=== PATIENT | male | born 1975 | race Caucasian/White ===

== ENCOUNTER 2021-11-14 19:45 | Emergency (ER) | payer OTHER ==
[2021-11-14 19:57] VITALS: RESP 16; TEMP 97.7
--- NOTE | 2021-11-14 20:10 | ED ---
Alcohol HPI - General Chief Complaint: Alcohol Stated Complaint: ETOH Time Seen by Provider: 11/14/21 19:57 Source: patient, RN notes reviewed Mode of arrival: EMS Limitations: no limitations - History of Present Illness Initial Comments: This is a pleasant 46-year-old male who is admittedly intoxicated. Patient was laying on the ground hard. Patient denies any injury or fall. Denies any complaints. States she does have chronic back pain. Patient admits alcohol abuse. Denying any substance abuse otherwise. No suicidality or homicidality. Patient was brought in by [employer]. Patient needs to be cleared for long term. Review of systems Limited by alcohol intoxication but patient is able to give me an adequate history. Mild slurred speech but alert and oriented. No headache, no fever or chills, no changes in vision or hearing, no sore throat or difficulty with speech, no neck pain, no chest pain or shortness of breath, no abdominal pain, no nausea or vomiting, no changes in urination or bowel movements, no numbness or tingling, no extremity pain, no skin rashes or lesions. Past medical, surgical, social, and family history reviewed. Complaint: alcohol intoxication - Related Data Home Medications Medication Instructions Recorded Confirmed No Known Home Medications 10/17/15 10/17/15 Allergies Allergy/AdvReac Type Severity Reaction Status Date / Time No Known Allergies Allergy Verified 10/17/15 20:57 Review of Systems ROS Statement: Those systems with pertinent positive or pertinent negative responses have been documented in the HPI. ROS Other: All systems not noted in ROS Statement are negative. Past Medical History Past Medical History: No Reported History History of Any Multi-Drug Resistant Organisms: None Reported Past Surgical History: No Surgical Hx Reported Past Psychological History: Anxiety, Depression Smoking Status: Current every day smoker Past Alcohol Use History: Rare Past Drug Use History: Marijuana General Exam - General Exam Comments Initial Comments: Condition does not appear to be in any distress. Patient is alert and oriented. Cranial nerves II through XII intact. No evidence of head trauma or other trauma. Appears to be adequately hydrated. Patient does appear to have somewhat disheveled hygiene. Limitations: no limitations General appearance: alert, in no apparent distress Head exam: Present: atraumatic, normocephalic, normal inspection Eye exam: Present: normal appearance, PERRL, EOMI. Absent: scleral icterus, conjunctival injection, periorbital swelling ENT exam: Present: normal exam, normal oropharynx, mucous membranes moist, normal external ear exam. Absent: mucous membranes dry Neck exam: Present: normal inspection, full ROM. Absent: tenderness, meni ngismus, lymphadenopathy Respiratory exam: Present: normal lung sounds bilaterally. Absent: respiratory distress, wheezes, rales, rhonchi, stridor, chest wall tenderness, accessory muscle use Cardiovascular Exam: Present: regular rate, normal rhythm, normal heart sounds. Absent: systolic murmur, diastolic murmur, rubs, gallop, clicks GI/Abdominal exam: Present: soft, normal bowel sounds. Absent: distended, tenderness, guarding, rebound, rigid Extremities exam: Present: normal inspection, full ROM, normal capillary refill. Absent: tenderness, pedal edema, joint swelling, calf tenderness Back exam: Present: normal inspection Neurological exam: Present: alert, oriented X3, CN II-XII intact Psychiatric exam: Present: normal affect, normal mood Skin exam: Present: warm, dry, intact, normal color. Absent: rash, cyanosis, diaphoretic, erythema, urticaria, vesicles, petechiae, pallor, mottled, abrasion Course Vital Signs 11/14/21 19:52 Temperature 97.7 F Pulse Rate 76 Respiratory 16 Rate Blood Pressure 127/108 O2 Sat by Pulse 91 L Oximetry Medical Decision Making - Medical Decision Making The case was discussed in detail with ED attending physician. Presentation, findings, treatment plan discussed in detail. Patient presents with alcohol intoxication, needs Correction clearance. Patient was told to return to the ER for any signs or symptoms worsen. Told to return immediately if any other problems arise. All questions answered. Treatment plan discussed. Patient in agreement Every effort has been made to ensure accuracy of this dictation. However, due to the limitations of electronic medical records and dictation devices, errors in charting still occur. Supervising Dr. Collins Disposition Clinical Impression: Alcohol intoxication Disposition: HOME SELF-CARE Condition: Good Instructions (If sedation given, give patient instructions): Alcohol Intoxication (ED) Additional Instructions: Patient released to police custody Is patient prescribed a controlled substance at d/c from ED?: No Referrals: None,Stated [Primary Care Provider] - 1-2 days Time of Disposition: 20:10
[2021-11-14] MEDS ORDERED: MORPHINE SULFATE 4 MG/ML SYRINGE IV STA (20:15)
[2021-11-14] MEDS ORDERED: SODIUM CHLORIDE 0.9% 1,000 ML IV STA ×2 (20:15→21:01)
[2021-11-14] MEDS ORDERED: ONDANSETRON 4 MG/2 ML VIAL IVP STA (20:15)
[2021-11-14] MEDS ORDERED: KETOROLAC 15 MG/ML 1 ML VIAL IVP STA (20:16)
[2021-11-14] MEDS ORDERED: THIAMINE 100 MG/ML 2 ML VIAL IVP SCH (20:45)
[2021-11-15 00:23] VITALS: BP 125/68; PULSE 88
== END 2021-11-15 00:22 | disposition home or self-care (01) ==
LOC: EC 19:45
DX: F10.129 Alcohol abuse with intoxication, unspecified (principal); F17.200 Nicotine dependence, unspecified, uncomplicated
CPT/HCPCS: 99283; 96374; J3411

== ENCOUNTER 2023-01-23 19:43 | Emergency (ER) | payer OTHER ==
[2023-01-23 19:58] VITALS: TEMP 97.5
[2023-01-23] MEDS ORDERED: NICOTINE 14MG/24HR PATCH TRANSDERM STA (20:35)
--- NOTE | 2023-01-23 20:37 | ED ---
Head Injury HPI - General Chief complaint: Fall Stated complaint: ETOH - FALL Time Seen by Provider: 01/23/23 19:56 Source: patient, EMS, RN notes reviewed Mode of arrival: EMS Limitations: altered mental status - History of Present Illness Initial comments: This is a 47-year-old male who presents to the emergency department for alcohol intoxication and a head injury. Patient reports drinking a large amount of alcohol this evening, and per EMS, he tripped and fell, hitting the left side of his head about 30 minutes before arrival. Patient is unsure if there was any loss of consciousness. Not taking any blood thinners. EMS also states that the patient was complaining of blurry vision during transport. He is currently exhibiting no signs of distress and asking to leave. MD Complaint: head injury - Related Data Home Medications Medication Instructions Recorded Confirmed No Known Home Medications 10/17/15 10/17/15 Allergies/Adverse reactions: Allergies Allergy/AdvReac Type Severity Reaction Status Date / Time No Known Allergies Allergy Verified 10/17/15 20:57 Review of Systems ROS Statement: Those systems with pertinent positive or pertinent negative responses have been documented in the HPI. ROS Other: All systems not noted in ROS Statement are negative. Past Medical History Past Medical History: No Reported History History of Any Multi-Drug Resistant Organisms: None Reported Past Surgical History: No Surgical Hx Reported Past Psychological History: Anxiety, Depression Smoking Status: Current every day smoker Past Alcohol Use History: Abuse, Heavy Past Drug Use History: Marijuana General Exam Limitations: altered mental status General appearance: alert, appears intoxicated Head exam: Present: other (Hematoma to the left side of the head with overlying 1cm laceration with minor active bleeding) Eye exam: Present: normal appearance, PERRL, EOMI. Absent: scleral icterus, conjunctival injection, periorbital swelling Respiratory exam: Present: normal lung sounds bilaterally. Absent: respiratory distress, wheezes, rales, rhonchi, stridor Cardiovascular Exam: Present: regular rate, normal rhythm, normal heart sounds. Absent: systolic murmur, diastolic murmur, rubs, gallop, clicks Neurological exam: Present: alert, oriented X3, CN II-XII intact Psychiatric exam: Present: normal affect, normal mood Skin exam: Present: warm, dry, normal color. Absent: rash Course Vital Signs 01/23/23 01/23/23 19:45 21:39 Temperature 97.5 F L Pulse Rate 61 88 Respiratory 20 18 Rate Blood Pressure 134/99 146/98 O2 Sat by Pulse 100 96 Oximetry Procedures - Laceration Laceration #1 Consent Obtained: verbal consent Indication: laceration Site: scalp Size (cm): 1 Description: linear Depth: simple, single layer Type of Sutures: other ([place]) Number of Sutures: 1 Medical Decision Making - Medical Decision Making This is a 47 year old male who presents to the emergency department for a head injury. Was pt. sent in by a medical professional or institution? @ -No Did you speak to anyone other than the patient for history? @ -EMS provided the information about the blurry vision. Did you review nursing and triage notes? @ -Yes, and I agree, it is accurate with regards to the patient's symptoms. Were old charts reviewed? @ -No Differential Diagnosis? @ -Differential Diagnosis Head Injury: Contusion, hematoma, intracranial hemorrhage, skull fracture, whiplash, concussion, this is not meant to be an all-inclusive list. EKG interpreted by me (3pts min.)? @ -Not obtained X-rays interpreted by me (1pt min.)? @ -Not obtained CT interpreted by me (1pt min.)? @ -Computed tomography scan of the brain and c-spine obtained. My interpretation identifies no evidence of an acute intracranial hemorrhage, skull fracture, or cervical spine fracture. U/S interpreted by me (1pt. min.)? @ -Not obtained What testing was considered but not performed? (CT, X-rays, U/S, labs)? Why? @ -None What meds were considered but not given? Why? @ -None Did you discuss the management of the patient with other professionals? @ -No Did you reconcile home meds? @ -No Was smoking cessation discussed for >3mins.? @ -I discussed smoking cessation for greater than 3 minutes. The risk of smoking were discussed with the patient including but not limited to risks of cancer, stroke, coronary artery disease and COPD. Also discussed with patient were multiple methods of quitting smoking. Lastly we discussed the financial cost of smoking. Was critical care preformed (if so, how long)? @ -No Were there social determinants of health that impacted care today? How? (Homelessness, low income, unemployed, alcoholism, drug addiction, transportation, low edu. Level, literacy, decrease access to med. care, [facility], rehab)? @ -Alcoholism, leading to recurrent visits for alcohol intoxication and leading to the fall that brought him to the emergency department today. Was there de-escalation of care discussed even if they declined? (Discuss DNR or withdrawal of care, Hospice)? @ -No What co-morbidities impacted this encounter? (DM, HTN, Smoking, COPD, CAD, Cancer, CVA, Hep., AIDS, mental health diagnosis, sleep apnea, morbid obesity)? @ -Smoking, alcoholism Was patient admitted / discharged? @ -Discharged. GCS is 15. However, given the likely loss of consciousness with alcohol intoxication, computed tomography scan of the brain/C-spine was obtained. Patient was agreeable to a computed tomography scan of the brain, however he refused any blood work. BAT was 0.245. Computed tomography scan of the brain and c-spine revealed no acute findings. Patient was drinking coffee and continued to remain in no signs of distress. A staple was placed in the laceration within the hematoma. Patient was discharged home into the care of his father. He is instructed to return in 10-14 days for staple removal. He is also educated on the need to reduce alcohol consumption. Undiagnosed new problem with uncertain prognosis? @ -None Drug Therapy requiring intensive monitoring for toxicity (Heparin, Nitro, Insulin, Cardizem)? @ -None Were any procedures done? @ -Laceration repair with jaylan Diagnosis/symptom? @ -Head injury, alcohol intoxication, fall, laceration Acute, or Chronic, or Acute on Chronic? @ -Acute Uncomplicated (without systemic symptoms) or Complicated (systemic symptoms)? @ -Uncomplicated Side effects of treatment? @ -None Exacerbation, Progression, or Severe Exacerbation] @ -Not applicable Poses a threat to life or bodily function? @ -No Return precautions reviewed in depth, the patient is instructed to return to the emergency department with any new, worsening, or concerning symptoms. Patient verbalized understanding. This case was discussed in detail with the attending ED physician, Dr. Kee. Presentation, findings, and treatment plan discussed in detail as well. - Radiology Data Radiology results: report reviewed, image reviewed Disposition Clinical Impression: Fall, Head injury, Scalp laceration, Alcohol intoxication, Nicotine dependence Disposition: HOME SELF-CARE Instructions (If sedation given, give patient instructions): Alcohol Intoxication (ED), Staple Care (ED) Additional Instructions: Return to the emergency department with any new, worsening, or concerning symptoms and in 10-14 days for removal of the jaylan. Reduce your alcohol consumption. Follow up with your primary care provider in 1-2 days. Is patient prescribed a controlled substance at d/c from ED?: No Referrals: None,Stated [Primary Care Provider] - 1-2 days
--- NOTE | 2023-01-23 21:11 | CT ---
EXAMINATION TYPE: CT brain cspine wo con DATE OF EXAM: 01/23/2023 COMPARISON: None HISTORY: ETOH, Fall and hit head on concrete about [address] DLP: 1267.3 mGycm. Automated Exposure Control for Dose Reduction was Utilized. TECHNIQUE: CT scan of the head and cervical spine are performed without contrast. FINDINGS: There is soft tissue swelling laterally, over the left temporal and parietal bone. There is no underlying skull fracture. No acute intracranial hemorrhage, mass effect, or midline shift identi fied. The ventricles and sulci are within normal limits in size. The globes are intact. The left ma xillary sinus and the left anterior ethmoid sinus air cells are completely opacified, consistent with chronic inflammatory change. Remainder of the paranasal sinuses are clear. The middle ear cavities a nd mastoid sinus air cells are clear. Cervical spine is visualized in its entirety from C1 through upper thoracic levels and demonstrates s atisfactory alignment without evidence of acute fracture or dislocation. Prevertebral soft tissue ap pears within normal limits. The C1-C2 articulation is unremarkable. IMPRESSION: 1. There is no acute fracture or dislocation evident in the cervical spine. 2. No acute intracranial hemorrhage, mass effect, or midline shift is seen.
[2023-01-23 21:53] VITALS: BP 146/98; PULSE 88; RESP 18
== END 2023-01-23 21:40 | disposition home or self-care (01) ==
LOC: EC 19:43
DX: S01.01XA Laceration without foreign body of scalp, initial encounter (principal); F10.129 Alcohol abuse with intoxication, unspecified; F17.200 Nicotine dependence, unspecified, uncomplicated; F12.90 Cannabis use, unspecified, uncomplicated; Z86.59 Personal history of other mental and behavioral disorders; W01.0XXA Fall on same level from slipping, tripping and stumbling without subsequent striking against object, initial encounter
CPT/HCPCS: 82075; 72125; 70450; 99284; 12001; S4990

== ENCOUNTER 2023-12-01 18:24 | Observation (INO) | payer OTHER ==
[2023-12-01] MEDS: SODIUM CHLORIDE 0.9% 1,000 ML IV SCH (18:56)
--- NOTE | 2023-12-01 19:05 | ED ---
General Adult HPI - General Chief complaint: Altered Mental Status Stated complaint: AMS Time Seen by Provider: 12/01/23 18:30 Source: patient, EMS, RN notes reviewed, old records reviewed Mode of arrival: EMS Limitations: altered mental status - History of Present Illness Initial comments: 48 male presenting with acute alcohol intoxication. Patient is intoxicated and unable to give detailed history. He does admit to drinking "a lot". Patient has no physical complaints at the time my evaluation although history is quite limited. - Related Data Home Medications Medication Instructions Recorded Confirmed No Known Home Medications 10/17/15 12/01/23 Allergies Allergy/AdvReac Type Severity Reaction Status Date / Time No Known Allergies Allergy Verified 12/01/23 19:57 Review of Systems ROS Statement: Those systems with pertinent positive or pertinent negative responses have been documented in the HPI. ROS Other: All systems not noted in ROS Statement are negative. Past Medical History Past Medical History: No Reported History History of Any Multi-Drug Resistant Organisms: None Reported Past Surgical History: No Surgical Hx Reported Past Psychological History: Anxiety, Depression Smoking Status: Current every day smoker Past Alcohol Use History: Abuse, Heavy Past Drug Use History: Marijuana General Exam Limitations: altered mental status General appearance: appears intoxicated, lethargic Head exam: Present: atraumatic, normocephalic Eye exam: Present: normal appearance, PERRL ENT exam: Present: normal exam Neck exam: Present: normal inspection. Absent: tenderness, meningismus Respiratory exam: Present: normal lung sounds bilaterally. Absent: respiratory distress, wheezes Cardiovascular Exam: Present: regular rate, normal rhythm GI/Abdominal exam: Present: soft. Absent: distended Neurological exam: Present: alert, CN II-XII intact. Absent: oriented X3, motor sensory deficit Skin exam: Present: warm, dry, intact Course Vital Signs 12/01/23 18:25 Temperature 98.4 F Pulse Rate 92 Respiratory 16 Rate Blood Pressure 141/97 O2 Sat by Pulse 98 Oximetry Medical Decision Making - Medical Decision Making Was pt. sent in by a medical professional or institution (Dr. PA, STEEL MOLDER, urgent care, hospital, or long term...) When possible be specific @ -No Did you speak to anyone other than the patient for history (EMS, parent, family, police, friend...)? What history was obtained from this source @ -No Did you review nursing and triage notes (agree or disagree)? Why? @ -I reviewed and agree with nursing and triage notes Were old charts reviewed (outside hosp., previous admission, EMS record, old EKG, old radiological studies, urgent care reports/EKG's, long term records)? Report findings @ -No old charts were reviewed Differential Altered Mental Status: Hypoglycemia, DKA, hypercapnia, ETOH, overdose, CO poisoning, trauma, myxedema coma, HTN encephalopathy, infection, encephalitis, psychosis, intercranial hemorrhage, hepatic encephalopathy, meningitis, CVA, this is not meant to be an all-inclusive list EKG interpreted by me (3pts min.). @ -As above X-rays interpreted by me (1pt min.). @ -None done CT interpreted by me (1pt min.). @ -None done U/S interpreted by me (1pt. min.). @ -None done What testing was considered but not performed or refused? (CT, X-rays, U/S, labs)? Why? @ -None What meds were considered but not given or refused? Why? @ -None Did you discuss the management of the patient with other professionals (professionals i.e. , PA, STEEL MOLDER, lab, RT, psych nurse, mental health social worker, bobbin hauler, teacher, public health service officer, watch caser)? Give summary @ -No Was smoking cessation discussed for >3mins.? @ -No Was critical care preformed (if so, how long)? @ -No Were there social determinants of health that impacted care today? How? (Homelessness, low income, unemployed, alcoholism, drug addiction, transportation, low edu. Level, literacy, decrease access to med. care, care home, rehab)? @ -No Was there de-escalation of care discussed even if they declined (Discuss DNR or withdrawal of care, Hospice)? DNR status @ -No What co-morbidities impacted this encounter? (DM, HTN, Smoking, COPD, CAD, Cancer, CVA, ARF, Chemo, Hep., AIDS, mental health diagnosis, sleep apnea, morbid obesity)? @Alcohol abuse Was patient admitted / discharged? Hospital course, mention meds given and route, prescriptions, significant lab abnormalities, going to OR and other pertinent info. @ -8-year-old male presenting with suspected acute alcohol intoxication and altered mental status. Breath alcohol is over 350. Serum alcohol is obtained 550. Patient will be admitted for acute alcohol intoxication, case discussed with Javi mac [facility]. Undiagnosed new problem with uncertain prognosis? @ -No Drug Therapy requiring intensive monitoring for toxicity (Heparin, Nitro, Insulin, Cardizem)? @ -No Were any procedures done? @ -No Diagnosis/symptom? @ -[Alcohol intoxication Acute, or Chronic, or Acute on Chronic? @ -Acute Uncomplicated (without systemic symptoms) or Complicated (systemic symptoms)? @ -Default Side effects of treatment? @ -No Exacerbation, Progression, or Severe Exacerbation? @ -No Poses a threat to life or bodily function? How? (Chest pain, USA, SC, pneumonia, PE, COPD, DKA, ARF, appy, cholecystitis, CVA, Diverticulitis, Homicidal, Suicidal, threat to staff... and all critical care pts) @ -Yes, alcohol intoxication, delirium tremens - Lab Data Result diagrams: 12/01/23 18:59 12/01/23 18:59 Lab Results 12/01/23 12/01/23 Range/Units 18:59 18:59 WBC 8.1 (3.8-10.6) k/uL RBC 3.86 L (4.30-5.90) m/uL Hgb 14.1 (13.0-17.5) gm/dL Hct 42.2 (39.0-53.0) % MCV 109.5 H (80.0-100.0) fL MCH 36.5 H (25.0-35.0) pg MCHC 33.4 (31.0-37.0) g/dL RDW 14.3 (11.5-15.5) % Plt Count 250 (150-450) k/uL MPV 8.2 Neutrophils % 65 % Lymphocytes % 23 % Monocytes % 6 % Eosinophils % 3 % Basophils % 1 % Neutrophils # 5.2 (1.3-7.7) k/uL Lymphocytes # 1.9 (1.0-4.8) k/uL Monocytes # 0.5 (0-1.0) k/uL Eosinophils # 0.2 (0-0.7) k/uL Basophils # 0.1 (0-0.2) k/uL Manual Slide Review Performed Macrocytosis Marked A Sodium 142 (137-145) mmol/L Potassium 4.0 (3.5-5.1) mmol/L Chloride 106 (98-107) mmol/L Carbon Dioxide 24 (22-30) mmol/L Anion Gap 12 mmol/L BUN 15 (9-20) mg/dL Creatinine 0.88 (0.66-1.25) mg/dL Est GFR (CKD-EPI)AfAm >90 (>60 ml/min/1.73 sqM) Est GFR (CKD-EPI)NonAf >90 (>60 ml/min/1.73 sqM) Glucose 149 H (74-99) mg/dL Calcium 9.5 (8.4-10.2) mg/dL Magnesium 1.5 L (1.6-2.3) mg/dL Total Bilirubin 0.3 (0.2-1.3) mg/dL AST 54 (17-59) U/L ALT 30 (4-49) U/L Alkaline Phosphatase 52 (38-126) U/L Total Protein 6.8 (6.3-8.2) g/dL Albumin 4.3 (3.5-5.0) g/dL Serum Alcohol 550 H* mg/dL Disposition Clinical Impression: Alcoholic intoxication Disposition: ADMITTED IP TO THIS HOSP Condition: Stable Is patient prescribed a controlled substance at d/c from ED?: No Time of Disposition: 20:43
[2023-12-01 19:18] LABS: Basophils # (A) 0.1 k/uL (0-0.2); Basophils % (A) 1 %; Eosinophils # (A) 0.2 k/uL (0-0.7); Eosinophils % (A) 3 %; HCT 42.2 % (39.0-53.0); HGB 14.1 gm/dL (13.0-17.5); Lymphocytes # (A) 1.9 k/uL (1.0-4.8); Lymphocytes % (A) 23 %; MCH 36.5 pg (25.0-35.0); MCHC 33.4 g/dL (31.0-37.0); MCV 109.5 fL (80.0-100.0); Macrocytosis Marked; Mean Platelet Volume 8.2; Monocytes # (A) 0.5 k/uL (0-1.0); Monocytes % (A) 6 %; Neutrophils # (A) 5.2 k/uL (1.3-7.7); Neutrophils % (A) 65 %; Platelet Count 250 k/uL (150-450); RBC 3.86 m/uL (4.30-5.90); RDW 14.3 % (11.5-15.5); WBC 8.1 k/uL (3.8-10.6)
[2023-12-01 19:33] LABS: ALT 30 U/L (4-49); AST 54 U/L (17-59); African American GFR (CKD) >90 (>60 ml/min/1.73 sqM); Albumin 4.3 g/dL (3.5-5.0); Alkaline Phosphatase 52 U/L (38-126); Anion Gap 12 mmol/L; Blood Urea Nitrogen 15 mg/dL (9-20); Calcium 9.5 mg/dL (8.4-10.2); Carbon Dioxide 24 mmol/L (22-30); Chloride 106 mmol/L (98-107); Glucose 149 mg/dL (74-99); Magnesium 1.5 mg/dL (1.6-2.3); Non-African American GFR(CKD) >90 (>60 ml/min/1.73 sqM); Sodium 142 mmol/L (137-145); Total Bilirubin 0.3 mg/dL (0.2-1.3); Total Protein 6.8 g/dL (6.3-8.2)
[2023-12-01] MEDS ORDERED: NALOXONE 0.4 MG/ML 1 ML VIAL IV PRN (20:36)
[2023-12-01] MEDS ORDERED: LORazepam 2 MG/ML INJ IV PRN ×3 (20:36)
[2023-12-01 20:54] LABS: Alcohol 550 mg/dL
[2023-12-01] MEDS: MAGNESIUM SULFATE-D5W PMX 1 GM in DEXTROSE/WATER 1 100ML.BAG IVPB ONE (21:05)
[2023-12-02 01:04] VITALS: TEMP 98.3
--- NOTE | 2023-12-02 14:39 | P.HPIM ---
History of Present Illness H&P Date: 12/02/23 This is a pleasant 48-year-old male with chronic alcoholism states that he drinks at least 1 pint per day as well as a pack of cigarettes per day. Patient also reports to daily marijuana use. Patient comes into the hospital significantly intoxicated with an alcohol level of 550. He is unsure how he got to the hospital today he is awake alert and oriented and is asking to be discharged. Patient does state that he wants to quit alcohol has gone through acute alcohol withdrawal in the past but feels like he will not withdrawal and is asking for discharge. His blood work on admission shows an MCV of 109.5, glucose 149, magnesium 1.5. REVIEW OF SYSTEMS: CONSTITUTIONAL: No fever, no malaise, no fatigue. HEENT: No recent visual problems or hearing problems. Denied any sore throat. CARDIOVASCULAR: No chest pain, orthopnea, PND, no palpitations, no syncope. PULMONARY: No shortness of breath, no cough, no hemoptysis. GASTROINTESTINAL: No diarrhea, no nausea, no vomiting, no abdominal pain. NEUROLOGICAL: No headaches, no weakness, no numbness. HEMATOLOGICAL: Denies any bleeding or petechiae. GENITOURINARY: Denies any burning micturition, frequency, or urgency. MUSCULOSKELETAL/RHEUMATOLOGICAL: Denies any joint pain, swelling, or any muscle pain. ENDOCRINE: Denies any polyuria or polydipsia. The rest of the 14-point review of systems is negative. PHYSICAL EXAMINATION: GENERAL: The patient is alert and oriented x3, not in any acute distress. Well developed, well nourished. HEENT: Pupils are round and equally reacting to light. EOMI. No scleral icterus. No conjunctival pallor. Normocephalic, atraumatic. No pharyngeal erythema. No thyromegaly. CARDIOVASCULAR: S1 and S2 present. No murmurs, rubs, or gallops. PULMONARY: Chest is clear to auscultation, no wheezing or crackles. ABDOMEN: Soft, nontender, nondistended, normoactive bowel sounds. No palpable organomegaly. MUSCULOSKELETAL: No joint swelling or deformity. EXTREMITIES: No cyanosis, clubbing, or pedal edema. NEUROLOGICAL: Gross neurological examination did not reveal any focal deficits. SKIN: No rashes. Assessment Acute alcohol intoxication Chronic nicotine use Marijuana use Hypomagnesemia from the chronic alcoholism, macrocytosis likely from the chronic alcoholism GI prophylaxis Full Code Plan Patient wants to be discharged. Will be given oral librium taper and community resources Discussed alcohol cessation patient wants to quit drinking. Patient to see his PCP on follow up. Recomment thiamine and folic acid supplementation on discharge. B12 and Folate can be monitored outpatinet. The impression and plan of care has been dictated by Juanita Baker, Nurse Practitioner as directed. Dr. Daniel MD I have performed a history and physical examination and medical decision making of this patient, discussed the same with the dictator, and agree with the dictators assessment and plan as written, documented as a scribe. Based on total visit time, I have performed more than 50% of this visit. Past Medical History Past Medical History: No Reported History History of Any Multi-Drug Resistant Organisms: None Reported Past Surgical History: No Surgical Hx Reported Past Psychological History: Anxiety, Depression Smoking Status: Current every day smoker Past Alcohol Use History: Abuse, Heavy Past Drug Use History: Marijuana Medications and Allergies Home Medications Medication Instructions Recorded Confirmed Type No Known Home Medications 10/17/15 12/01/23 History Allergies Allergy/AdvReac Type Severity Reaction Status Date / Time No Known Allergies Allergy Verified 12/01/23 19:57 Physical Exam Vitals: Vital Signs Temp Pulse Resp BP Pulse Ox 12/02/23 07:42 84 16 129/85 96 12/02/23 06:09 98.3 F 74 16 111/70 95 12/02/23 01:00 98.3 F 60 16 137/76 93 L 12/01/23 18:25 98.4 F 92 16 141/97 98 Intake and Output 12/01/23 12/02/23 12/02/23 22:59 06:59 14:59 Other: Weight 68.039 kg Results CBC & Chem 7: 12/01/23 18:59 12/01/23 18:59 Labs: Abnormal Lab Results - Last 24 Hours (Table) 12/01/23 12/01/23 Range/Units 18:59 18:59 RBC 3.86 L (4.30-5.90) m/uL MCV 109.5 H (80.0-100.0) fL MCH 36.5 H (25.0-35.0) pg Macrocytosis Marked A Glucose 149 H (74-99) mg/dL Magnesium 1.5 L (1.6-2.3) mg/dL Serum Alcohol 550 H* mg/dL Assessment and Plan Time with Patient: Less than 30
--- NOTE | 2023-12-02 14:43 | P.DS ---
Providers Date of admission: 12/01/23 20:37 Attending physician: Shane Vogel Primary care physician: Stated None Hospital Course: This is a pleasant 48-year-old male with chronic alcoholism states that he drinks at least 1 pint per day as well as a pack of cigarettes per day. Patient also reports to daily marijuana use. Patient comes into the hospital significantly intoxicated with an alcohol level of 550. He is unsure how he got to the hospital today he is awake alert and oriented and is asking to be discharged. Patient does state that he wants to quit alcohol has gone through acute alcohol withdrawal in the past but feels like he will not withdrawal and is asking for discharge. His blood work on admission shows an MCV of 109.5, glucose 149, magnesium 1.5. REVIEW OF SYSTEMS: CONSTITUTIONAL: No fever, no malaise, no fatigue. HEENT: No recent visual problems or hearing problems. Denied any sore throat. CARDIOVASCULAR: No chest pain, orthopnea, PND, no palpitations, no syncope. PULMONARY: No shortness of breath, no cough, no hemoptysis. GASTROINTESTINAL: No diarrhea, no nausea, no vomiting, no abdominal pain. NEUROLOGICAL: No headaches, no weakness, no numbness. HEMATOLOGICAL: Denies any bleeding or petechiae. GENITOURINARY: Denies any burning micturition, frequency, or urgency. MUSCULOSKELETAL/RHEUMATOLOGICAL: Denies any joint pain, swelling, or any muscle pain. ENDOCRINE: Denies any polyuria or polydipsia. The rest of the 14-point review of systems is negative. PHYSICAL EXAMINATION: GENERAL: The patient is alert and oriented x3, not in any acute distress. Well developed, well nourished. HEENT: Pupils are round and equally reacting to light. EOMI. No scleral icterus. No conjunctival pallor. Normocephalic, atraumatic. No pharyngeal erythema. No thyromegaly. CARDIOVASCULAR: S1 and S2 present. No murmurs, rubs, or gallops. PULMONARY: Chest is clear to auscultation, no wheezing or crackles. ABDOMEN: Soft, nontender, nondistended, normoactive bowel sounds. No palpable organomegaly. MUSCULOSKELETAL: No joint swelling or deformity. EXTREMITIES: No cyanosis, clubbing, or pedal edema. NEUROLOGICAL: Gross neurological examination did not reveal any focal deficits. SKIN: No rashes. Assessment Acute alcohol intoxication Chronic nicotine use Marijuana use Hypomagnesemia from the chronic alcoholism, macrocytosis likely from the chronic alcoholism GI prophylaxis Full Code Plan Patient wants to be discharged. Will be given oral librium taper and community resources Discussed alcohol cessation patient wants to quit drinking. Patient to see his PCP on follow up. Recomment thiamine and folic acid supplementation on discharge. B12 and Folate can be monitored outpatinet. The impression and plan of care has been dictated by Juanita Baker, Nurse Practitioner as directed. Dr. Daniel MD I have performed a history and physical examination and medical decision making of this patient, discussed the same with the dictator, and agree with the dictators assessment and plan as written, documented as a scribe. Based on total visit time, I have performed more than 50% of this visit. Patient Condition at Discharge: Stable Plan - Discharge Summary New Discharge Prescriptions: New Folic Acid 1 mg PO DAILY #30 tablet chlordiazePOXIDE HCl [Librium] 25 mg PO DIRECTED 6 Days #12 capsule Pantoprazole Sodium [Protonix] 20 mg PO DAILY #30 tab Thiamine [Vitamin B-1] 100 mg PO DAILY #30 tablet Discharge Medication List Folic Acid 1 mg PO DAILY #30 tablet 12/02/23 [Rx] Pantoprazole Sodium [Protonix] 20 mg PO DAILY #30 tab 12/02/23 [Rx] Thiamine [Vitamin B-1] 100 mg PO DAILY #30 tablet 12/02/23 [Rx] chlordiazePOXIDE HCl [Librium] 25 mg PO DIRECTED 6 Days #12 capsule 12/02/23 [Rx] Follow up Appointment(s)/Referral(s): None,Stated [Primary Care Provider] - 1-2 days Iman Bravo MD [STAFF PHYSICIAN] - 1 Week Activity/Diet/Wound Care/Special Instructions: Do Not Drink while taking librium Discharge/Stand Alone Forms: Outpatient Counseling, Inp Substance Abuse Facilities, AA Meetings [facility] Meetings [address] [facility], Area PCPs Discharge Disposition: HOME SELF-CARE
[2023-12-02 15:28] VITALS: BP 154/98; PULSE 67; RESP 18
[2023-12-02] MEDS ORDERED: PANTOPRAZOLE 40 MG/10 ML VIAL IVP SCH (21:00)
== END 2023-12-02 15:06 | disposition home or self-care (01) ==
LOC: EC 18:24 → 6NMEDSUR 20:37
PROVIDERS: ADMIT Hospitalist; ATTEND Hospitalist
DX: F10.229 Alcohol dependence with intoxication, unspecified (principal); E83.42 Hypomagnesemia; D75.89 Other specified diseases of blood and blood-forming organs; F41.9 Anxiety disorder, unspecified; F32.A Depression, unspecified; F17.210 Nicotine dependence, cigarettes, uncomplicated; F12.90 Cannabis use, unspecified, uncomplicated; Y90.8 Blood alcohol level of 240 mg/100 ml or more
CPT/HCPCS: 36415; 80053; 80320; 83735; 85025; 96365; 99285